=== PATIENT | male | born 1975 | race Caucasian/White ===

== ENCOUNTER 2020-09-17 08:52 | Emergency (ER) | payer BC, SELFPAY ==
[2020-09-17 08:53] VITALS: BP 144/81; PULSE 75; RESP 18; TEMP 36.5; O2SAT 98; BMI 34.4
--- NOTE | 2020-09-17 08:54 | W.ED.ABDPA2 ---
HPI - Abdominal Pain General: Chief Complaint: Abdominal Pain Stated Complaint: ABD Pain Time Seen by Provider: 09/17/20 08:52 Source: patient Mode of arrival: ambulatory Limitations: no limitations History of Present Illness: HPI narrative: Patient is a 45-year-old male who presents to ED today with a complaint of lower abdominal pain. Patient tells me he has a history of diverticulitis and Crohn's disease. Patient has never seen a GI specialist for either of these. Patient tells me his last diverticulitis flare was approximately 2 months ago. He states this episode began about 9 days ago. He was seen in urgent care 2 days ago and recommended to come to the emergency department however patient did not. He states he has never had a flare this severe before. He has having non-bloody diarrhea. No vomiting. He is not sure if he has been running fevers. Denies urinary symptoms. MD elicited complaint: abdominal pain Pertinent past history: diverticulitis Onset (ago): day(s) Pain Consistency: constant Location: Other (throughout lower abdomen) Severity: severe Quality: stabbing Radiation: none Migration to: no migration Relieving factors: nothing Associated Symptoms: Reports diarrhea; Denies chills, coffee ground emesis, dysuria, hematochezia, hematemesis, melena, nausea and vomiting Review of Systems Const: Reports: fever(s) (pt reports he isn't sure if he's been running fevers); Denies: chills, body aches, fatigue or malaise Card: Denies: chest pain Resp: Denies: dyspnea GI: Reports: abdominal pain and diarrhea; Denies: nausea, vomiting, hematemesis, coffee ground emesis, hematochezia or melena : Denies: flank pain, difficulty urinating, dysuria, urinary frequency, urinary urgency or urinary hesitancy Musc: Denies: back pain Skin/Breast: Denies: rash Neuro: Denies: headache(s) PFSH ED PFSH: Social History Smoking and tobacco status: current every day smoker Alcohol intake: never Physical Exam Const: COMMON NORMALS: patient oriented x3, no limitations and alert GENERAL APPEARANCE: cooperative and in distress (appears uncomfortable ) NUTRITIONAL APPEARANCE: obese ORIENTATION/CONSCIOUSNESS: Yes awake, Yes oriented to person, Yes oriented to place and Yes oriented to time HENMT: COMMON NORMALS: normocephalic and atraumatic HEAD & SCALP: normocephalic and atraumatic Resp: COMMON NORMALS: normal respiratory effort and clear to auscultation bilaterally AUSCULTATION: clear to auscultation bilaterally Cardio: COMMON NORMALS: regular rate and regular rhythm RATE: regular rate RHYTHM: regular rhythm GI: COMMON NORMALS: Normal to inspection, nondistended, normoactive bowel sounds present, Soft to palpation, No hepatosplenomegaly present and no masses INSPECTION: Yes normal to inspection AUSCULTATION: Yes normoactive bowel sounds PALPATION: Yes Soft to palpation, Yes Tenderness to palpation present (GI) (throughout lower abdomen), Yes Guarding due to palpation present (GI) and Yes No hepatosplenomegaly present : COMMON NORMALS: Yes no CVA tenderness BLADDER/KIDNEY EXAM: Yes no CVA tenderness Back/Pelvis: COMMON NORMALS: no CVA tenderness Neuro: COMMON NORMALS: patient oriented x3 SENSORIUM/ORIENTATION: Yes alert, Yes oriented to person, Yes oriented to place and Yes oriented to time Skin: COMMON NORMALS: no rashes or lesions noted GENERAL SKIN EXAM: no rashes or lesions noted Course Vital Signs: Vital signs: Vital Signs Temperature 97.7 F 09/17/20 08:53 Pulse Rate 58 L 09/17/20 10:21 Respiratory Rate 16 09/17/20 10:21 Blood Pressure 133/80 09/17/20 10:21 Pulse Oximetry 96 09/17/20 10:21 MDM - Abdominal Pain MDM Narrative: Medical decision making narrative: Patient currently feeling much better. Vital signs of been stable throughout his stay. Labs are non-concerning at this time. He does have an elevated lipase at 148 however patient has no left upper quadrant tenderness. His CT scan shows no pancreatic inflammation. Based on patient's history and worsening pain I will go ahead and place him on Cipro and Flagyl. He is wanting something mainly for the abdominal cramping. He will be placed on Bentyl for this. Recommend follow-up with primary care provider. Return to ED precautions given. Lab Data: Labs: Lab Results 09/17/20 09/17/20 09/17/20 Range/Units 09:03 09:05 09:05 WBC 8.6 (4.0-10.0) 10^3/ uL RBC 6.29 H (4.1-5.3) 10^6/u L Hgb 18.2 H (11.7-16.6) g/dL Hct 53.2 H (42.0-52.0) % MCV 84.6 (80-94) fL MCH 28.9 (28.0-34.0) pg MCHC 34.2 (30.0-36.0) g/dL RDW 12.6 (12.1-15.1) % Plt Count 275 (130-400) 10^3/c mm MPV 10.4 (7.4-10.4) fL Neut % (Auto) 65.0 % Lymph % (Auto) 24.7 % [place] % (Auto) 7.6 % Eos % (Auto) 1.6 % Baso % (Auto) 0.6 % Neut # (Auto) 5.57 (1.8-7.7) 10^3/u L Lymph # (Auto) 2.1 (0.8-4.8) 10^3/u L [place] # (Auto) 0.7 (0.2-0.9) 10^3/u L Eos # (Auto) 0.1 (0.0-0.8) 10^3/u L Baso # (Auto) 0.1 (0.0-0.1) 10^3/u L Nucleated RBC % (a uto) 0 % Nucleated RBCs # 0.0 /100WBC Sodium 135 L (136-145) mmol/L Potassium 4.3 (3.5-5.1) mmol/L Chloride 103 (98-107) mmol/L Carbon Dioxide 22 (22-29) mmol/L Anion Gap 14.3 (5-19) BUN 10 (6-20) mg/dL Creatinine 0.9 (0.7-1.2) mg/dL GFR Calculation 91.7 (90-130) mL/min Glucose 105 (65-115) mg/dL Calculated Osmolal ity 279 L (285-295) mOsm/k g Lactic Acid (0.5-2.2) mmol/L Calcium 9.5 (8.5-10.5) mg/dL Total Bilirubin 0.4 (0.15-1.2) mg/dL AST 11 (0-40) U/L ALT 12 (0-41) U/L Alkaline Phosphata se 96 (40-130) IU/L Total Protein 7.3 (6.6-8.7) g/dL Albumin 4.4 (3.5-5.2) g/dL Globulin 2.9 (1.3-4.6) g/dL Lipase 148 H (13-60) U/L Urine Color Yellow (Yellow) Urine Appearance Clear (CLEAR) Urine pH 5 (5-7) Ur Specific Gravit y 1.025 (1.005-1.030) Urine Protein Neg (Negative) Urine Glucose (UA) Norm (Normal) Urine Ketones Negative (Negative) Urine Blood Neg (Negative) Urine Nitrate Negative (Negative) Urine Bilirubin 1+ H (Negative) Urine Urobilinogen Norm (Negative) mg/dL Ur Leukocyte Debbie ase Negative (Negative) 09/17/20 Range/Units 09:05 WBC (4.0-10.0) 10^3/ uL RBC (4.1-5.3) 10^6/u L Hgb (11.7-16.6) g/dL Hct (42.0-52.0) % MCV (80-94) fL MCH (28.0-34.0) pg MCHC (30.0-36.0) g/dL RDW (12.1-15.1) % Plt Count (130-400) 10^3/c mm MPV (7.4-10.4) fL Neut % (Auto) % Lymph % (Auto) % [place] % (Auto) % Eos % (Auto) % Baso % (Auto) % Neut # (Auto) (1.8-7.7) 10^3/u L Lymph # (Auto) (0.8-4.8) 10^3/u L [place] # (Auto) (0.2-0.9) 10^3/u L Eos # (Auto) (0.0-0.8) 10^3/u L Baso # (Auto) (0.0-0.1) 10^3/u L Nucleated RBC % (a uto) % Nucleated RBCs # /100WBC Sodium (136-145) mmol/L Potassium (3.5-5.1) mmol/L Chloride (98-107) mmol/L Carbon Dioxide (22-29) mmol/L Anion Gap (5-19) BUN (6-20) mg/dL Creatinine (0.7-1.2) mg/dL GFR Calculation (90-130) mL/min Glucose (65-115) mg/dL Calculated Osmolal ity (285-295) mOsm/k g Lactic Acid 1.6 (0.5-2.2) mmol/L Calcium (8.5-10.5) mg/dL Total Bilirubin (0.15-1.2) mg/dL AST (0-40) U/L ALT (0-41) U/L Alkaline Phosphata se (40-130) IU/L Total Protein (6.6-8.7) g/dL Albumin (3.5-5.2) g/dL Globulin (1.3-4.6) g/dL Lipase (13-60) U/L Urine Color (Yellow) Urine Appearance (CLEAR) Urine pH (5-7) Ur Specific Gravit y (1.005-1.030) Urine Protein (Negative) Urine Glucose (UA) (Normal) Urine Ketones (Negative) Urine Blood (Negative) Urine Nitrate (Negative) Urine Bilirubin (Negative) Urine Urobilinogen (Negative) mg/dL Ur Leukocyte Debbie ase (Negative) Imaging Data ^: CT Abd/Pel: Radiologist's impression: [address] [address] [address] Scan Report Signed Patient: Bradley Barroso Unit #: [id number] : 1975 Age/Sex: 45 / M ADM Date: 09/17/20 Loc: ER Room/Bed: Attending Dr: Ordering Provider/Ordering MD: Simi Aguilar Date of Service: 09/17/20 Procedure(s): CT abdomen pelvis w con* [id number] Accession Number(s): [id number] Report Number: [id number] WS: [id number] CT ABDOMEN AND PELVIS WITH CONTRAST HISTORY: lower abdominal pain, diarrhea TECHNIQUE: Imaging performed of the abdomen and pelvis with IV contrast. Single phase imaging of the abdomen. Coronal and sagittal reformats are submitted. All CT scans at [facility] use at least one of these dose optimization techniques: automated exposure control; mA and/or kV adjustment per patient size (includes targeted exams where dose is matched to clinical indication); or iterative reconstruction. IV CONTRAST: Omnipaque 300; 95 mL IV. Oral contrast: No DLP: 2082.74 mGy.cm COMPARISON: 01/14/2011 Lower thorax: Lung bases are clear. Heart is normal size. Small hernia. Liver/biliary system: Normal size with no intrahepatic dilatation. Gallbladder: Very slightly contracted gallbladder. No adjacent inflammation or wall thickening. Pancreas: Normal. Spleen: Normal. Adrenal glands: Normal. Right kidney: Normal. Left kidney: Normal. Aorta: Normal. Lymphadenopathy: None. Free fluid: None. GI tract: The appendix is normal. There is mild fluid distention of the small bowel but no focal transition point. Numerous diverticula in the sigmoid and descending colon. No focal area of acute diverticulitis. Very early changes of mild mucosal edema beginning in the mid transverse colon through the splenic flexure. Abdominal wall: Unremarkable abdominal wall. No hernia. Pelvis: Mild prostate gland hypertrophy with central calcifications. No adenopathy or fluid. Bones: Unremarkable. CT/CT abdomen pelvis w con* [id number] IMPRESSION: 1. Normal appendix. 2. Very mild mucosal edema beginning in the mid transverse colon to the splenic flexure secondary to colitis. 3. Numerous descending and sigmoid diverticula. No evidence for acute diverticulitis. 4. No abscess or free fluid. Dictated By: Lynette Gomes DO Signed By: Lynette Gomes DO Signed Date/Time: 09/17/20945 DD/ 9 Discharge Plan Discharge Patient Disposition: Home Clinical Impression: Colitis Condition: Stable Prescriptions: New hydrocodone-acetaminophen 5-325 mg tablet 1 tab PO Q6H PRN (Reason: pain) Qty: 14 RF: 0 Flagyl 500 mg tablet 500 mg PO BID 7 Days Qty: 14 RF: 0 Cipro 500 mg tablet 500 mg PO Q12H Qty: 14 RF: 0 dicyclomine 10 mg capsule 10 mg PO TID Qty: 14 RF: 0 No Action ondansetron 8 mg tablet,disintegrating 8 mg PO Q12H PRN (Reason: nausea and vomiting) 7 Days Qty: 14 RF: 0 Discharge Orders: Discharge ED (Routine); Ordered 09/17/20 Ordered By: Simi Aguilar Patient Instructions: Diverticulitis (ED), Ulcerative Colitis (ED), Opioid Safety Activity Restrictions/Additional Instructions: [facility] is committed to fighting the nationwide opiate epidemic. We are providing ALL patients with information regarding opiate safety. If you received opiate pain medication during your stay or if you received a prescription for opiate pain medication-please review this handout. If not, you may disregard. Thank you. Please return to the emergency department for worsening or nonimproving abdominal pain, repetitive episodes of vomiting or diarrhea, blood in your vomit or diarrhea, fevers, inability to keep down your medication, or any other concerns you may have. Coding Level of Care Code ED Flame Annealing Machine Operator for Chg Fwd Exam Detailed
--- NOTE | 2020-09-17 09:03 | CT_ITS ---
WS: [id number] CT ABDOMEN AND PELVIS WITH CONTRAST HISTORY: lower abdominal pain, diarrhea TECHNIQUE: Imaging performed of the abdomen and pelvis with IV contrast. Single phase imaging of the abdomen. Coronal and sagittal reformats are submitted. All CT scans at [facility] use at least one of these dose optimization techniques: automated exposure control; mA and/or kV adjustment per patient size (includes targeted exams where dose is matched to clinical indication); or iterativ e reconstruction. IV CONTRAST: Omnipaque 300; 95 mL IV. Oral contrast: No DLP: 2082.74 mGy.cm COMPARISON: 01/14/2011 Lower thorax: Lung bases are clear. Heart is normal size. Small hernia. Liver/biliary system: Normal size with no intrahepatic dilatation. Gallbladder: Very slightly contracted gallbladder. No adjacent inflammation or wall thickening. Pancreas: Normal. Spleen: Normal. Adrenal glands: Normal. Right kidney: Normal. Left kidney: Normal. Aorta: Normal. Lymphadenopathy: None. Free fluid: None. GI tract: The appendix is normal. There is mild fluid distention of the small bowel but no focal talley sition point. Numerous diverticula in the sigmoid and descending colon. No focal area of acute divert iculitis. Very early changes of mild mucosal edema beginning in the mid transverse colon through the splenic flexure. Abdominal wall: Unremarkable abdominal wall. No hernia. Pelvis: Mild prostate gland hypertrophy with central calcifications. No adenopathy or fluid. Bones: Unremarkable. CT/CT abdomen pelvis w con* [id number] IMPRESSION: 1. Normal appendix. 2. Very mild mucosal edema beginning in the mid transverse colon to the spleni c flexure secondary to colitis. 3. Numerous descending and sigmoid diverticula. No evidence for acute divertic ulitis. 4. No abscess or free fluid.
[2020-09-17 09:04] VITALS: BP 137/79; PULSE 80; RESP 19; O2SAT 98
[2020-09-17] MEDS: sodium chloride 0.9% 1,000 ML 999 ML IV (09:10)
[2020-09-17 09:11] LABS: Add Urine Microscopic? NO
[2020-09-17] MEDS: ondansetron 2 mg/ML SDV 2 mL 4 MG IVP (09:11)
[2020-09-17 09:12] VITALS: RESP 18; O2SAT 99
[2020-09-17 09:12] LABS: Basophils # 0.1 10^3/uL (0.0-0.1); Basophils % 0.6 %; Eosinophils # 0.1 10^3/uL (0.0-0.8); Eosinophils % 1.6 %; Hematocrit 53.2 % (42.0-52.0); Hemoglobin 18.2 g/dL (11.7-16.6); Lymphocytes # 2.1 10^3/uL (0.8-4.8); Lymphocytes % 24.7 %; Mean Corpuscular HGB Conc 34.2 g/dL (30.0-36.0); Mean Corpuscular Hemoglobin 28.9 pg (28.0-34.0); Mean Corpuscular Volume 84.6 fL (80-94); Mean Platelet Volume 10.4 fL (7.4-10.4); Monocytes # 0.7 10^3/uL (0.2-0.9); Monocytes % 7.6 %; Neutrophils # 5.57 10^3/uL (1.8-7.7); Nucleated Red Blood Cells % 0 %; Platelet Count 275 10^3/cmm (130-400); Red Blood Count 6.29 10^6/uL (4.1-5.3); Red Cell Distribution Width 12.6 % (12.1-15.1); White Blood Count 8.6 10^3/uL (4.0-10.0)
[2020-09-17] MEDS: morphine 4 mg/mL SDV 1 mL IVP (09:12)
[2020-09-17 09:19] LABS: Urine Appearance Clear (CLEAR); Urine Color Yellow (Yellow); pH Urine 5 (5-7)
[2020-09-17 09:20] LABS: Bilirubin Urine 1+ (Negative); Blood Urine Neg (Negative); Glucose Urine UA Norm (Normal); Ketones Urine Negative (Negative); Leukocyte Esterase Urine Negative (Negative); Nitrate Urine Negative (Negative); Protein Urine Neg (Negative); Specific Gravity, Urine 1.025 (1.005-1.030); Urobilinogen Urine Norm (Negative)
[2020-09-17] MEDS: iohexol 300 mg/mL 100 mL Btl IV (09:24)
[2020-09-17 09:28] LABS: Lactic Sepsis W/Reflex 1.6 mmol/L (0.5-2.2)
[2020-09-17 09:29] LABS: Alanine Aminotransferase 12 U/L (0-41); Albumin Level 4.4 g/dL (3.5-5.2); Alkaline Phosphatase 96 IU/L (40-130); Anion Gap 14.3 (5-19); Aspartate Amino Transferase 11 U/L (0-40); Blood Urea Nitrogen 10 mg/dL (6-20); Calcium 9.5 mg/dL (8.5-10.5); Carbon Dioxide 22 mmol/L (22-29); Chloride 103 mmol/L (98-107); Globulin 2.9 g/dL (1.3-4.6); Glomerular Filtration Rate 91.7 mL/min (90-130); Glucose 105 mg/dL (65-115); Lipase 148 U/L (13-60); Osmolality Calculated 279 mOsm/kg (285-295); Potassium 4.3 mmol/L (3.5-5.1); Sodium 135 mmol/L (136-145); Total Bilirubin 0.4 mg/dL (0.15-1.2); Total Protein 7.3 g/dL (6.6-8.7)
[2020-09-17 09:45] VITALS: BP 137/79; PULSE 63; RESP 17; O2SAT 96
[2020-09-17 10:21] VITALS: BP 133/80; PULSE 58; RESP 16; O2SAT 96
== END 2020-09-17 10:21 | disposition home or self-care (01) ==
PROVIDERS: Emergency Provider Physician Assistant
DX: K52.9 Noninfective gastroenteritis and colitis, unspecified (principal); F17.210 Nicotine dependence, cigarettes, uncomplicated
CPT/HCPCS: 74177; 80053; 81003; 83605; 83690; 85025; 96374; 96375; 99284; J2270; J2405; J7030; Q9967

== ENCOUNTER 2020-11-25 12:19 | Inpatient (IN) | payer BC, SELFPAY ==
[2020-11-25] VITALS (7 sets, daily range): BP systolic 113–149; BP diastolic 78–95; PULSE 78–92; RESP 16–18; TEMP 35.9–36.4; O2SAT 95–98
--- NOTE | 2020-11-25 12:47 | W.ED.PSYCH ---
HPI - Psych General: Chief Complaint: Psychiatric Symptoms Stated Complaint: FABIO CRAFT Time Seen by Provider: 11/25/20 12:26 History of Present Illness: HPI Narrative: 45-year-old male who was sent here by both cars worker due to depression. Patient said he is impressed for 5 years never has sought help for it and actually sought help today. States that it is been ongoing mccle[place]and. It worsened recently by his mothers this past year. He also is and having a raised 2 boys. He says the stress tablet is just got too much for him. Said he thinks every day about suicide when he closes eyes he thinks about suicide and taking his life he does not have a plan developed. Patient also states that he does smoke marijuana on regular basis and does do meth. MD complaint: suicidal ideation and feels depressed Onset (ago): year(s) Duration: constant and getting worse History of same: No Relieving factors: none Exacerbating factors: drug use Context: recent drug abuse Associated psychiatric symptoms: depression and suicidal ideation Associated symptoms: Reports no associated symptoms, depression and suicidal ideation Treatments prior to arrival: none If self harm: admits thoughts of self harm Review of Systems Const: Denies: fever(s), chills or body aches Eyes: Denies: change in vision or blurry vision ENMT: Denies: throat pain or nasal congestion Card: Denies: chest pain or dyspnea on exertion Resp: Denies: dyspnea, productive cough or non-productive cough GI: Denies: abdominal pain, nausea or vomiting : Denies: difficulty urinating Musc: Denies: extremity pain Skin/Breast: Denies: rash Neuro: Denies: headache(s) Psych: Reports: depression and suicidal ideation; Denies: anxiety Richie/Lymph: Denies: easy bruising PFS ED PFSH: Social History Smoking and tobacco status: current every day smoker Alcohol intake: never Physical Exam Const: COMMON NORMALS: no acute distress, average body habitus and patient oriented x3 HENMT: COMMON NORMALS: normocephalic HEAD & SCALP: normal to inspection and normocephalic FACE & SINUS: normal facial exam Eye: COMMON NORMALS: conjunctivae normal GENERAL EYE: appearance normal, both eyes and all related structures CONJUNCTIVA: Yes conjunctivae normal Neck/C-Spine: COMMON NORMALS: no JVD Chest: COMMONS NORMALS: normal inspection of the chest Resp: COMMON NORMALS: normal respiratory effort and clear to auscultation bilaterally AUSCULTATION: clear to auscultation bilaterally Cardio: COMMON NORMALS: no JVD, regular rate and regular rhythm RATE: regular rate RHYTHM: regular rhythm GI: COMMON NORMALS: Normal to inspection, nondistended, normoactive bowel sounds present Extremity: COMMON NORMALS: normal to inspection and full ROM Neuro: COMMON NORMALS: patient oriented x3 Psych: COMMON NORMALS: Normal thought process present, cooperative and speech normal APPEARANCE: Yes grossly normal ATTITUDE: Yes agitated ACTIVITY/MOTOR BEHAVIOR: Yes appropriate eye contact SPEECH: Yes normal speech MOOD & AFFECT: Yes depressed mood THOUGHT PROCESS: Normal thought process present Course Vital Signs: Vital signs: Vital Signs Temperature 97.6 F 11/25/20 12:39 Pulse Rate 86 11/25/20 12:39 Respiratory Rate 16 11/25/20 12:39 Pulse Oximetry 97 11/25/20 12:39 MDM - Psych MDM Narrative: Medical decision making narrative: I spoke with Dr. Jean he agrees accept the patient for admission Lab Data: Labs: Lab Results 11/25/20 11/25/20 11/25/20 Range/Units 13:28 13:28 13:51 WBC 11.0 H (4.0-10.0) 10^3/ uL RBC 6.49 H (4.1-5.3) 10^6/u L Hgb 18.8 H (11.7-16.6) g/dL Hct 54.5 H (42.0-52.0) % MCV 84.0 (80-94) fL MCH 29.0 (28.0-34.0) pg MCHC 34.5 (30.0-36.0) g/dL RDW 12.5 (12.1-15.1) % Plt Count 282 (130-400) 10^3/c mm MPV 10.3 (7.4-10.4) fL Neut % (Auto) 70.2 % Lymph % (Auto) 20.9 % [place] % (Auto) 7.1 % Eos % (Auto) 0.8 % Baso % (Auto) 0.6 % Neut # (Auto) 7.70 (1.8-7.7) 10^3/u L Lymph # (Auto) 2.3 (0.8-4.8) 10^3/u L [place] # (Auto) 0.8 (0.2-0.9) 10^3/u L Eos # (Auto) 0.1 (0.0-0.8) 10^3/u L Baso # (Auto) 0.1 (0.0-0.1) 10^3/u L Nucleated RBC % (a uto) 0 % Nucleated RBCs # 0.0 /100WBC Sodium 137 (136-145) mmol/L Potassium 3.8 (3.5-5.1) mmol/L Chloride 101 (98-107) mmol/L Carbon Dioxide 24 (22-29) mmol/L Anion Gap 15.8 (5-19) BUN 11 (6-20) mg/dL Creatinine 0.8 (0.7-1.2) mg/dL GFR Calculation 105.0 (90-130) mL/min Glucose 111 (65-115) mg/dL Calculated Osmolal ity 284 L (285-295) mOsm/k g Calcium 9.4 (8.5-10.5) mg/dL Total Bilirubin 0.6 (0.15-1.2) mg/dL AST 12 (0-40) U/L ALT 8 (0-41) U/L Alkaline Phosphata se 108 (40-130) IU/L Total Protein 7.4 (6.6-8.7) g/dL Albumin 4.4 (3.5-5.2) g/dL Globulin 3.0 (1.3-4.6) g/dL Urine Color (Yellow) Urine Appearance (CLEAR) Urine pH (5-7) Ur Specific Gravit y (1.005-1.030) Urine Protein (Negative) Urine Glucose (UA) (Normal) Urine Ketones (Negative) Urine Blood (Negative) Urine Nitrate (Negative) Urine Bilirubin (Negative) Urine Urobilinogen (Negative) mg/dL Ur Leukocyte Debbie ase (Negative) Urine RBC (0-2) /hpf Urine WBC (0-5) /hpf Ur Squamous Epith Cells (0-5) /hpf Amorphous Sediment Urine Bacteria (NONE) /hpf Urine Mucus /hpf Salicylates 2.2 L (3-10) mg/dL Urine Opiates Scre en Negative (Negative) ng/mL Acetaminophen < 5.0 L (10-30) ug/mL Ur Barbiturates Sc reen Negative (Negative) ng/mL Ur Phencyclidine S crn Negative (Negative) ng/mL Ur Amphetamines Sc reen Positive H (Negative) ng/mL U Benzodiazepines Scrn Negative (Negative) ng/mL Urine Cocaine Scre en Negative (Negative) ng/mL U Marijuana (THC) Screen Positive H (Negative) ng/mL 11/25/20 Range/Units 13:51 WBC (4.0-10.0) 10^3/ uL RBC (4.1-5.3) 10^6/u L Hgb (11.7-16.6) g/dL Hct (42.0-52.0) % MCV (80-94) fL MCH (28.0-34.0) pg MCHC (30.0-36.0) g/dL RDW (12.1-15.1) % Plt Count (130-400) 10^3/c mm MPV (7.4-10.4) fL Neut % (Auto) % Lymph % (Auto) % [place] % (Auto) % Eos % (Auto) % Baso % (Auto) % Neut # (Auto) (1.8-7.7) 10^3/u L Lymph # (Auto) (0.8-4.8) 10^3/u L [place] # (Auto) (0.2-0.9) 10^3/u L Eos # (Auto) (0.0-0.8) 10^3/u L Baso # (Auto) (0.0-0.1) 10^3/u L Nucleated RBC % (a uto) % Nucleated RBCs # /100WBC Sodium (136-145) mmol/L Potassium (3.5-5.1) mmol/L Chloride (98-107) mmol/L Carbon Dioxide (22-29) mmol/L Anion Gap (5-19) BUN (6-20) mg/dL Creatinine (0.7-1.2) mg/dL GFR Calculation (90-130) mL/min Glucose (65-115) mg/dL Calculated Osmolal ity (285-295) mOsm/k g Calcium (8.5-10.5) mg/dL Total Bilirubin (0.15-1.2) mg/dL AST (0-40) U/L ALT (0-41) U/L Alkaline Phosphata se (40-130) IU/L Total Protein (6.6-8.7) g/dL Albumin (3.5-5.2) g/dL Globulin (1.3-4.6) g/dL Urine Color Dark yellow (Yellow) Urine Appearance Clear (CLEAR) Urine pH 5 (5-7) Ur Specific Gravit y 1.020 (1.005-1.030) Urine Protein Trace (Negative) Urine Glucose (UA) Norm (Normal) Urine Ketones 1+ H (Negative) Urine Blood 2+ H (Negative) Urine Nitrate Negative (Negative) Urine Bilirubin 1+ H (Negative) Urine Urobilinogen 1 H (Negative) mg/dL Ur Leukocyte Debbie ase Trace H (Negative) Urine RBC 0-4 H (0-2) /hpf Urine WBC 0-4 H (0-5) /hpf Ur Squamous Epith Cells 0-4 H (0-5) /hpf Amorphous Sediment Not Reportable Urine Bacteria 1+ H (NONE) /hpf Urine Mucus 3+ /hpf Salicylates (3-10) mg/dL Urine Opiates Scre en (Negative) ng/mL Acetaminophen (10-30) ug/mL Ur Barbiturates Sc reen (Negative) ng/mL Ur Phencyclidine S crn (Negative) ng/mL Ur Amphetamines Sc reen (Negative) ng/mL U Benzodiazepines Scrn (Negative) ng/mL Urine Cocaine Scre en (Negative) ng/mL U Marijuana (THC) Screen (Negative) ng/mL Discharge Plan Discharge Prescriptions: No Action aspirin 325 mg Tablet 650 mg PO Q6H PRN (Reason: Pain) RF: 0 Coding Level of Care Code ED Rivet Heater Gas for Chg Fwd Exam Comprehensive
[2020-11-25 13:39] LABS: Basophils # 0.1 10^3/uL (0.0-0.1); Basophils % 0.6 %; Eosinophils # 0.1 10^3/uL (0.0-0.8); Eosinophils % 0.8 %; Hematocrit 54.5 % (42.0-52.0); Hemoglobin 18.8 g/dL (11.7-16.6); Lymphocytes # 2.3 10^3/uL (0.8-4.8); Lymphocytes % 20.9 %; Mean Corpuscular HGB Conc 34.5 g/dL (30.0-36.0); Mean Platelet Volume 10.3 fL (7.4-10.4); Monocytes # 0.8 10^3/uL (0.2-0.9); Monocytes % 7.1 %; Neutrophils % 70.2 %; Nucleated Red Blood Cells % 0 %; Platelet Count 282 10^3/cmm (130-400); Red Blood Count 6.49 10^6/uL (4.1-5.3); Red Cell Distribution Width 12.5 % (12.1-15.1)
[2020-11-25] MEDS: LORazepam 2 mg Tablet PO (13:45)
[2020-11-25 14:01] LABS: Add Urine Microscopic? YES; Bilirubin Urine 1+ (Negative); Blood Urine 2+ (Negative); Glucose Urine UA Norm (Normal); Ketones Urine 1+ (Negative); Leukocyte Esterase Urine Trace (Negative); Nitrate Urine Negative (Negative); Protein Urine Trace (Negative); Urine Appearance Clear (CLEAR); Urine Color Dark Yellow (Yellow); Urobilinogen Urine 1 mg/dL (Negative); pH Urine 5 (5-7)
[2020-11-25 14:04] LABS: Alanine Aminotransferase 8 U/L (0-41); Albumin Level 4.4 g/dL (3.5-5.2); Alkaline Phosphatase 108 IU/L (40-130); Anion Gap 15.8 (5-19); Aspartate Amino Transferase 12 U/L (0-40); Blood Urea Nitrogen 11 mg/dL (6-20); Calcium 9.4 mg/dL (8.5-10.5); Carbon Dioxide 24 mmol/L (22-29); Chloride 101 mmol/L (98-107); Glucose 111 mg/dL (65-115); Osmolality Calculated 284 mOsm/kg (285-295); Potassium 3.8 mmol/L (3.5-5.1); Salicylate 2.2 mg/dL (3-10); Sodium 137 mmol/L (136-145); Total Bilirubin 0.6 mg/dL (0.15-1.2); Total Protein 7.4 g/dL (6.6-8.7)
[2020-11-25 14:05] LABS: Acetaminophen < 5.0 ug/mL (10-30)
[2020-11-25 14:07] LABS: Bacteria Urine 1+ /hpf; Mucus Urine 3+ /hpf; Squamous Epithelial Cell Urine 0-4 /hpf (0-5)
[2020-11-25 14:08] LABS: Add Urine Culture? No; RBC Urine 0-4 /hpf (0-2); WBC Urine 0-4 /hpf (0-5)
[2020-11-25 14:09] LABS: Amphetamines Screen Urine Positive (Negative); Barbiturates Screen Urine Negative (Negative); Benzodiazepines Screen Urine Negative (Negative); Cocaine Screen Urine Negative (Negative); Opiate Screen Urine Negative (Negative); PCP Screen Urine Negative (Negative); THC Screen Urine Positive (Negative)
[2020-11-25] MEDS: hyDROXYzine 25 mg Capsule 50 MG PO ×2 (16:02→21:12)
--- NOTE | 2020-11-25 16:02 | PC.NURSE ---
PRN VISTARIL 50 MG GIVEN PO PER PT C/O STATED ANXIETY, NEW ADMIT TO UNIT, WITHDRAWN. WILL CONT TO MONITOR
[2020-11-25] MEDS: nicotine 2 mg Gum BUCCAL (19:31)
[2020-11-25] MEDS: fluticasone nasal spray 16gm Btl 2 SPRAY INTRANASAL (21:13)
[2020-11-25] MEDS: trazodone 50 mg Tablet PO (21:14)
[2020-11-25] MEDS: albuterol 8 gm MDI 2 PUFF INHALATION (21:41)
--- NOTE | 2020-11-26 04:38 | PC.NURSE ---
Around 2119 the patient was given Trazodone 50 mg and Vistaril 50 mg per his request to aid with sleep. He appears to have been sleeping through the night.
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
[2020-11-26 06:00] VITALS: BP 117/73; PULSE 63; RESP 18; TEMP 36.9; O2SAT 95
--- NOTE | 2020-11-26 10:26 | PM.NHP ---
Providers/Chief Complaint Admitting Physician: John Jean MD Chief Complaint: mo carlene sent HPI NPU History of Present Illness Bradley Barroso is a 45 year old male with no reported past psychiatric history although reports lifelong depressive symptoms as well as ongoing, longstanding somatic complaints to include problems with his stomach presented to the emergency department with worsening depressive symptoms and suicidal ideation. He denies any current suicidal ideation and denies any history of suicide attempts or self-harm behavior but states that he has been having worsening passive suicidal thoughts over the past month. Patient has recent stressors of loss of his mother in the past year as well as divorce a couple years ago and is currently raising his 2 teenage sons without assistance from his ex- which he reports exacerbates his symptoms. 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 He continues to report low mood states decreased energy and interest in his usual activities as well as some difficulty with sleep and appetite related to depressive symptoms. Of note he reports using trazodone to assist with sleep last night and reports that it makes him feel extremely groggy in the morning. Patient also reports mood congruent auditory hallucinations and states that in the past he is also had visual hallucinations of seeing shadows or figures. Patient states that auditory hallucinations tell him that he is a bad person and that he should hurt himself but states that he has never acted on these perceptual disturbances. He currently denies any suicidal ideation or thoughts about self-harm Patient does report recent methamphetamine use and ongoing cannabis use but does not provide any details about duration, frequency, amounts. Per above, patient denies any past treatment to include medication management, counseling or therapy. He denies any past or recent episodes of ronnie or hypomania. Patient states he does not recall any family history of depression or anxiety or any family history of suicide attempts or completions. Patient reports being agreeable to starting a low-dose antidepressant as well as coordination for post discharge counseling/therapy. Review of Systems General: Reports: 10 or more systems reviewed and unremarkable except in HPI and below Meds NPU Home Medications Medication Instructions Recorded Confirmed Last Taken Type albuterol sulfate 2 puff INHALATION BEDTIME 11/25/20 11/25/20 11/24/20 History aspirin 650 mg PO Q6H PRN 11/25/20 11/25/20 11/24/20 History fluticasone propionate [Flonase] 2 spray INTRANASAL BEDTIME 11/25/20 11/25/20 11/24/20 History Allergies Allergy/AdvReac Type Severity Reaction Status Date / Time Penicillins Allergy ALGY-Anaphy Verified 10/23/20 10:44 laxis PFSH NPU PFSH: Social History Smoking and tobacco status: current every day smoker Alcohol intake: never Other Psychiatric History: Other Psychiatric History: Per above, patient denies any past psychiatric treatment Patient denies any history of psychiatric hospitalizations Patient denies any history of suicide attempts or self-harm behavior Mental Status Exam MSE Comments: Appears older than stated age, unshaven, unkempt, tired appearing, wearing hospital scrubs, fair eye contact, somewhat evasive Psychomotor activity is somewhat decreased, no agitation Speech with frequent pauses, normal volume, spontaneous, not pressured I feel horrible, congruent affect, not labile Alert and oriented to person, place, time, situation Memory and concentration appear to be intact per interview Intellectual functioning appears to be average based on vocabulary, interview Thought process, delayed on occasion, linear, no flight of ideas, no looseness of associations Thought content, no delusions, no hallucinations, no suicidal or homicidal ideation Insight and judgment appear to be intact Vitals/I&O/Wt Last Vital Signs Temp 98.4 F 11/26/20 06:00 Pulse 63 11/26/20 06:00 Resp 18 11/26/20 06:00 BP 117/73 11/26/20 06:00 Pulse Ox 95 11/26/20 06:00 Weight last 48 hrs Weight 104.326 kg Data NPU : 11/25/20 13:28 11/25/20 13:28 A&P Assessment and plan (1) Depression: Status: Acute Qualifiers: Depression Type: reactive depression Qualified Code(s): F32.9 - Major depressive disorder, single episode, unspecified (2) Drug abuse: Status: Acute Additional A&P Information 45-year-old male with no reported past psychiatric history reports lifelong depressive symptoms as well as occasional perceptual disturbances in the context of worsening depressive symptoms although positive urine drug screen for methamphetamine and cannabis with unclear timeline in relationship to his mood symptoms. Patient would likely benefit from abstaining from substances as well as starting low-dose antidepressant while being monitored and coordinating for post discharge mental health care to include counseling/therapy VOLUNTARY ADMIT to inpatient psychiatry START citalopram 10 mg daily with plan to titrate up targeting depressive and anxiety symptoms Discussed need to abstain from the use of substances and alcohol which likely exacerbate patient's psychiatric symptoms Encouraged patient to participate in unit activities to include group sessions, unit milieu Coordinate with social services designee for post discharge mental health care to include substance counseling, treatment Involuntary Hold Information 96 Hour Hold: 96 Hour Involuntary Admission: No Attestations NPU Medical Necessity Statement*: Psychiatric hospitalization indicated for medication stabilization, coordination for safe discharge Anticipate hospital stay to exceed 2 midnights Time Spent in Patient Care: Greater than 35 minutes (>than 50% of time spent in counselling and/or direct pt care on unit). Coding Level of Care Code Acute Director Financial Planning for Makenna Hidalog Diagnoses Depression F32.9 Depression Type: reactive depression Drug abuse F19.10
[2020-11-26] MEDS: citalopram 20 mg Tablet 10 MG PO (11:28)
[2020-11-26 14:00] VITALS: BP 131/73; PULSE 67; RESP 17; TEMP 37.1; O2SAT 94
[2020-11-26 19:38] VITALS: BP 115/68; PULSE 73; RESP 17; TEMP 36.7; O2SAT 97
[2020-11-26 20:05] VITALS: PULSE 68; RESP 16; O2SAT 97
[2020-11-26] MEDS: albuterol 8 gm MDI 2 PUFF INHALATION (20:05)
[2020-11-26 20:08] VITALS: PULSE 66
[2020-11-26] MEDS: fluticasone nasal spray 16gm Btl 2 SPRAY INTRANASAL (20:35)
[2020-11-27 06:00] VITALS: BP 123/75; PULSE 55; RESP 16; TEMP 36.8; O2SAT 96
[2020-11-27] MEDS: citalopram 20 mg Tablet 10 MG PO (08:45)
--- NOTE | 2020-11-27 10:43 | PM.NDC ---
Diagnoses at Discharge Discharge Diagnosis (1) Depression: Status: Acute Qualifiers: Depression Type: reactive depression Qualified Code(s): F32.9 - Major depressive disorder, single episode, unspecified (2) Drug abuse: Status: Acute Reason for Visit Reason for Visit: shira concepcion sent Hospital Course Hospital Course 45 year old male with no reported past psychiatric history although reports lifelong depressive symptoms as well as ongoing, longstanding somatic complaints to include problems with his stomach presented to the emergency department with worsening depressive symptoms and suicidal ideation. He denies any current suicidal ideation and denies any history of suicide attempts or self-harm behavior but states that he has been having worsening passive suicidal thoughts over the past month. Patient reports that he smokes cannabis but does not typically use methamphetamine but states that he was feeling especially depressed and had decided to use methamphetamine. He denied any psychotic symptoms at the time of initial evaluation. Patient denied any suicidal ideation throughout his hospital stay and reported some improvement of his depressive symptoms after sobering and starting citalopram which was titrated up to citalopram 20 mg daily with no reports of any medication side effects. Patient participate in unit milieu with no reports of any behavioral disturbances. He was not suicidal at the time of discharge and did not report any active psychiatric symptoms and did not appear to pose an imminent threat of harm to self or others. Low to moderate risk given no current suicidal ideation and no history of suicide attempts or self-harm behavior although patient's risk will continue be elevated if he is noncompliant with follow-up treatment recommendations and/or continues to abuse substances or drink alcohol which would lower disinhibition. Risk mitigation included psychiatric hospitalization, medication stabilization, observation for any persisting suicidal ideation or behaviors, recommendation to abstain from the use of substances and alcohol as well as the need for compliance with his medication, medication management and substance counseling follow-up. Patient was daily communicate his understanding of the need to abstain from the use of substances and alcohol as well as the need for compliance with his medication, medication management and substance counseling follow-up in order to further mitigate his risk of harm to self and others. Involuntary Hold Information 96 Hour Hold: 96 Hour Involuntary Admission: No Mental Status Exam MSE Comments: Sitting up on his bed, appropriately groomed and dressed, calm, cooperative, interactive, good eye contact Psychomotor activity is neither increased nor decreased, no agitation Speech, normal rate, normal volume, spontaneous, not pressured I feel better, full range of affect, not labile Alert and oriented to person, place, time, situation Memory and concentration appear to be intact per interview Thought process, linear, no flight of ideas, no looseness of associations Thought content, no delusions, no hallucinations, no suicidal or homicidal ideation Insight and judgment appear to be intact Discharge Data Vitals: Last Vital Signs Temp 98.2 F 11/27/20 06:00 Pulse 55 L 11/27/20 06:00 Resp 16 11/27/20 06:00 BP 123/75 11/27/20 06:00 Pulse Ox 96 11/27/20 06:00 Discharge Plan Discharge Patient Disposition: Home Condition: Stable Prescriptions: New citalopram 20 mg Tablet 20 mg PO DAILY Qty: 30 RF: 0 Continued aspirin 325 mg Tablet 650 mg PO Q6H PRN (Reason: Pain) RF: 0 Flonase 50 mcg/actuation [place],Suspension 2 spray INTRANASAL BEDTIME RF: 0 albuterol sulfate 90 mcg/actuation Hfa Aerosol Inhaler 2 puff INHALATION BEDTIME RF: 0 Discharge Orders: Discharge Order (Routine); Ordered 11/27/20 Ordered By: Adelina Limon Referrals: [facility] [Other] ([facility] has inpatient and outpatient services. ) [facility] [Outside] (Walkin in Monday-Monday from 7:30am to 3pm. Tell admissions you are there for an initial assessment and was recently discharged from the hospital.) Discharge Diet: Regular Discharge Activity: Resume usual activity Patient Instructions: Opioid Safety Discharge Attestations NPU Time Spent in Discharge Care*: greater than 30 min Status at Discharge: Cognitive status at discharge: cognitively intact, Behavioral status at discharge: cooperative, Functional status at discharge: independent ambulation Overall status at discharge: patient is back to baseline Coding Level of Care Code Acute Chg FW DC note Diagnoses Depression F32.9 Depression Type: reactive depression Drug abuse F19.10
[2020-11-27 11:36] VITALS: BP 123/75; PULSE 55; RESP 16; TEMP 36.8; O2SAT 96
--- NOTE | 2020-11-27 15:19 | PC.RESP ---
Smoking Cessation information sent to patient.
== END 2020-11-27 12:20 | disposition home or self-care (01) | DRG 881 ==
LOC: ER 14:40 → NP 14:51
PROVIDERS: Admitting Provider Psychiatry & Neurology Psychiatry; Emergency Provider Nurse Practitioner Family; Visit Provider Psychiatry & Neurology Psychiatry
DX: F32.9 Major depressive disorder, single episode, unspecified (principal); R45.851 Suicidal ideations; F15.10 Other stimulant abuse, uncomplicated; F12.10 Cannabis abuse, uncomplicated
CPT/HCPCS: 80053; 80306; 80307; 81001; 85025; 94640; 94664; 99285; J3535

== ENCOUNTER → 2021-07-27 15:36 | Outpatient (BNVA) | payer OTHER, SELFPAY | PROVIDERS: Visit Provider Nurse Practitioner | DX: Z20.822 Contact with and (suspected) exposure to COVID-19 (principal) | CPT/HCPCS: 87635 ==

== ENCOUNTER 2021-10-20 15:15 | Emergency (ER) | payer SELFPAY ==
[2021-10-20 15:25] VITALS: BP 123/85; PULSE 72; RESP 16; TEMP 36.3; O2SAT 97
--- NOTE | 2021-10-20 16:09 | CTR_ITS ---
PROCEDURE INFORMATION: Exam: CT Abdomen And Pelvis With Contrast Exam date and time: 10/20/2021 5:15 PM Age: 46 years old Clinical indication: Abdominal pain; Flank; Right lower quadrant (rlq); Prior surgery; Surgery date: 6+ months; Surgery type: Vasectomy; Additional info: Rlq pain with low grade fever, HX of ulcerative colitis TECHNIQUE: Imaging protocol: Computed tomography of the abdomen and pelvis with contrast. Radiation optimization: All CT scans at this facility use at least one of these dose optimization techniques: automated exposure control; mA and/or kV adjustment per patient size (includes targeted exams where dose is matched to clinical indication); or iterative reconstruction. Contrast material: OMNIPAQUE 350; Contrast volume: 95 ml; Contrast route: INTRAVENOUS (IV); COMPARISON: CT abdomen pelvis w con* [id number] 09/17/2020 9:35 AM RADIATION DOSE METRICS: Total DLP (mGy-cm): 1745.32 FINDINGS: Liver: Normal. No mass. Gallbladder and bile ducts: Normal. No calcified stones. No ductal dilation. Pancreas: Normal. No ductal dilation. Spleen: Spleen enlarged at 13.9 cm. Adrenal glands: Normal. No mass. Kidneys and ureters: Normal. No hydronephrosis. Stomach and bowel: Mildly prominent fluid in the small bowel without dilation suggestive of an enteritis. Diverticulosis without diverticulitis. Appendix: No evidence of appendicitis. Intraperitoneal space: Unremarkable. No free air. No significant fluid collection. Arteries: Unremarkable. No abdominal aortic aneurysm. Lymph nodes: Unremarkable. No enlarged lymph nodes. Urinary bladder: Unremarkable as visualized. Reproductive: Unremarkable as visualized. Bones/joints: Unremarkable. No acute fracture. Soft tissues: Unremarkable. CT/CT abdomen pelvis w con* [id number] IMPRESSION: 1. Mildly prominent fluid in the small bowel without dilation suggestive of an enteritis. 2. Spleen enlarged at 13.9 cm. 3. Diverticulosis without diverticulitis.
--- NOTE | 2021-10-20 16:26 | ECG_ITS ---
[facility] Test Date: 2021-10-20 Pat Name: Bradley Barroso Department: Room: Gender: Male Parts Facilitator: : 1975 Requested By: Yeison Gregg Order Number: [id number] Jaycee MD: Ventura Rosenberg M.D. Measurements Intervals [place] Rate: 60 P: 75 MS: 167 QRS: 86 QRSD: 102 T: 72 QT: 371 QTc: 371 Interpretive Statements SINUS RHYTHM WITH SINUS ARRHYTHMIA EARLY REPOLARIZATION [ST ELEVATION WITH NORMALLY INFLECTED T-WAVE] No previous ECG available for comparison Electronically Signed On 10-20-2021 16:57:37 CDT by Ventura Rosenberg M.D. [id number]
[2021-10-20 16:27] VITALS: BP 140/79; PULSE 77; RESP 14; O2SAT 97
--- NOTE | 2021-10-20 16:27 | ED_ITS ---
HPI - General Adult General: Chief complaint: Abdominal Pain Stated complaint: Severe ABD Pain Time Seen by Provider: 10/20/21 15:51 History of Present Illness: Patient is a 46-year-old male w/ hx of ulcerative colitis presenting to the emergency room with complaints of 3 days of worsening migratory abdominal pain to the right lower quadrant. Patient tells me that 3 days ago he had a periumbilical pain that has moved to the right lower quadrant has intensified. In addition, patient reports loose stool, reports fever x1 day. Reports nausea denies vomiting. Denies any melena/hematochezia. Patient has no urinary complaints, testicular complaints at this time. Denies any new penile discharge. No prior history of hernia. Onset: 3 days ago Duration:3 days Location:home Severity:moderate Associated symptoms: Reports nausea; Deny chest pain, dyspnea, rash, palpitations or vomiting Review of Systems Const: Denies: fever(s) or chills Eyes: Denies: change in vision ENMT: Denies: mouth pain Card: Denies: chest pain or palpitations Resp: Denies: dyspnea or non-productive cough GI: Reports: abdominal pain, nausea and diarrhea; Denies: vomiting : Denies: dysuria Musc: Denies: extremity pain Skin/Breast: Denies: rash or new lesions Neuro: Denies: weakness in extremities Psych: Reports: other (Normal mood) Richie/Lymph: Denies: easy bruising PFSH ED PFSH: Medical History (Updated 10/20/21 @ 18:35 by Yeison Gregg MD) Ulcerative colitis Social History Smoking and tobacco status: current every day smoker Alcohol intake: never Physical Exam Const: COMMON NORMALS: alert HENMT: COMMON NORMALS: atraumatic HEAD & SCALP: atraumatic MOUTH: moist mucous membranes not abnormal Eye: COMMON NORMALS: EOMs intact bilaterally and conjunctivae normal CONJUNCTIVA: Yes conjunctivae normal Neck/C-Spine: COMMON NORMALS: full ROM and supple Resp: COMMON NORMALS: normal respiratory effort and clear to auscultation bilaterally AUSCULTATION: clear to auscultation bilaterally Cardio: COMMON NORMALS: regular rate RATE: regular rate GI: COMMON NORMALS: Soft to palpation PALPATION: Yes Soft to palpation OTHER: +moderate RLQ TTP. NO guarding rebound, guarding, rigidity. No CVA tenderness to percussion. Neg Valdovinos/Neg McBurney's point tenderness, no suprabupic tenderness to palpation. Extremity: COMMON NORMALS: full ROM Neuro: SENSORIUM/ORIENTATION: Yes alert MOTOR EXAM: No Abnormal motor strength present and Other motor observations present (no focal motor deficits) Psych: COMMON NORMALS: speech normal SPEECH: Yes normal speech MOOD & AFFECT: Yes euthymic mood Course Vital Signs: Vital signs: Vital Signs Temperature 97.3 F L 10/20/21 15:25 Pulse Rate 54 L 10/20/21 18:22 Respiratory Rate 17 10/20/21 18:22 Blood Pressure 132/93 10/20/21 18:22 Pulse Oximetry 98 10/20/21 18:22 MDM - General Adult Medical Decision Making 46-year-old male w/ hx of UC presents emergency room with right lower quadrant abdominal pain x3 days diarrhea and nausea.. On exam, patient moderate tenderness to palpation. No guarding or rebound tenderness. Patient is afebrile. Lab work-up showed a white count of 9.8. Patient appears to be hemoconcentrated 18.8. He received IVF, GI cocktail and Zofran and is now able to tolerate p.o. he appears to be well controlled with morphine. CT abdomen showed enteritis without any focal findings. At the present time, I do not suspect any acute intra-abdominal pathologies. Unclear if patient is having an UC flare. Patient tells me that he currently does not follow-up with any doctor because does not have any insurance. I have given patient close follow-up with [facility] for reassessment at this time. He tells me that he will follow-up [facility] for reassessment of possible ulcerative colitis flare and continued monitoring. Rx tylenol PRN abd pain, maalox/pepcid PRN dyspepsia, and zofran PRN nausea/vomiting Disposition: Discharge. Patient counseled regarding diagnostic impression, treatment plan. Patient given ED strict return precautions to return for continuation, worsening, or development of new symptoms. Instructed to f/u w/ PCP regarding symptoms today. Patient verbalized understanding. Considered appendicitis however unlikely at this time given lack of signs and sx's to suggest appendicitis as etiology. Pt counseled that appendicitis may later develop and given appendicitis precautions and instructed to return if any development of RLQ tenderness, worsening or continued abdominal pain, or any fevers, chills, nausea, vomiting, or any other concerning signs or symptoms. Lab Data : 10/20/21 16:35 10/20/21 16:35 Radiology Impressions Abdomen/Pelvis CT 10/20/21 16:09 IMPRESSION: 1. Mildly prominent fluid in the small bowel without dilation suggestive of an enteritis. 2. Spleen enlarged at 13.9 cm. 3. Diverticulosis without diverticulitis. Laboratory Results WBC 9.8 10^3/uL (4.0-10.0) 10/20/21 16:35 RBC 6.40 10^6/uL (4.1-5.3) H 10/20/21 16:35 Hgb 18.8 g/dL (11.7-16.6) H 10/20/21 16:35 Hct 53.9 % (42.0-52.0) H 10/20/21 16:35 MCV 84.2 fl (80-94) 10/20/21 16:35 MCH 29.4 pg (28.0-34.0) 10/20/21 16:35 MCHC 34.9 g/dL (30.0-36.0) 10/20/21 16:35 RDW 12.4 % (12.1-15.1) 10/20/21 16:35 Plt Count 258 10^3/cmm (130-400) 10/20/21 16:35 MPV 11.2 fL (7.4-10.4) H 10/20/21 16:35 Neut % (Auto) 74.9 % 10/20/21 16:35 Lymph % (Auto) 18.3 % 10/20/21 16:35 [place] % (Auto) 5.3 % 10/20/21 16:35 Eos % (Auto) 1.0 % 10/20/21 16:35 Baso % (Auto) 0.2 % 10/20/21 16:35 Neut # (Auto) 7.37 10^3/uL (1.8-7.7) 10/20/21 16:35 Lymph # (Auto) 1.8 10^3/uL (0.8-4.8) 10/20/21 16:35 [place] # (Auto) 0.5 10^3/uL (0.2-0.9) 10/20/21 16:35 Eos # (Auto) 0.1 10^3/uL (0.0-0.8) 10/20/21 16:35 Baso # (Auto) 0.0 10^3/uL (0.0-0.1) 10/20/21 16:35 Nucleated RBC % (auto) 0 % 10/20/21 16:35 Nucleated RBCs # 0.0 /100WBC 10/20/21 16:35 Sodium 137 mmol/L (136-145) 10/20/21 16:35 Potassium 4.1 mmol/L (3.5-5.1) 10/20/21 16:35 Chloride 102 mmol/L (98-107) 10/20/21 16:35 Carbon Dioxide 22 mmol/L (22-29) 10/20/21 16:35 Anion Gap 17.1 (5-19) 10/20/21 16:35 BUN 8 mg/dL (6-20) 10/20/21 16:35 Creatinine 0.8 mg/dL (0.7-1.2) 10/20/21 16:35 GFR Calculation 104.5 mL/min (90-130) 10/20/21 16:35 Glucose 94 mg/dL (65-115) 10/20/21 16:35 Calculated Osmolality 282 mOsm/kg (285-295) L 10/20/21 16:35 Lactate 1.2 mmol/L (0.5-2.2) 10/20/21 16:35 Calcium 9.0 mg/dL (8.5-10.5) 10/20/21 16:35 Total Bilirubin 0.5 mg/dL (0.15-1.2) 10/20/21 16:35 AST 13 U/L (0-40) 10/20/21 16:35 ALT 8 U/L (0-41) 10/20/21 16:35 Alkaline Phosphatase 93 IU/L (40-130) 10/20/21 16:35 Total Protein 7.1 g/dL (6.6-8.7) 10/20/21 16:35 Albumin 4.7 g/dL (3.5-5.2) 10/20/21 16:35 Globulin 2.4 g/dL (1.3-4.6) 10/20/21 16:35 Lipase 63 U/L (13-60) H 10/20/21 16:35 Imaging Data Other Imaging: Radiologist's impression: [facility] [place] [address] CT Scan Report Signed Patient: Bradley Barroso Unit #: [id number] : 1975 Age/Sex: 46 / M ADM Date: 10/20/21 Loc: ER Room/Bed: Attending Dr: Ordering Provider/Ordering MD: Yeison Gregg MD Date of Service: 10/20/21 Procedure(s): CT abdomen pelvis w con* [id number] Accession Number(s): [id number] Report Number: [id number] PROCEDURE INFORMATION: Exam: CT Abdomen And Pelvis With Contrast Exam date and time: 10/20/2021 5:15 PM Age: 46 years old Clinical indication: Abdominal pain; Flank; Right lower quadrant (rlq); Prior surgery; Surgery date: 6+ months; Surgery type: Vasectomy; Additional info: Rlq pain with low grade fever, HX of ulcerative colitis TECHNIQUE: Imaging protocol: Computed tomography of the abdomen and pelvis with contrast. Radiation optimization: All CT scans at this facility use at least one of these dose optimization techniques: automated exposure control; mA and/or kV adjustment per patient size (includes targeted exams where dose is matched to clinical indication); or iterative reconstruction. Contrast material: OMNIPAQUE 350; Contrast volume: 95 ml; Contrast route: INTRAVENOUS (IV);? COMPARISON: CT abdomen pelvis w con* [id number] 09/17/2020 9:35 AM RADIATION DOSE METRICS: Total DLP (mGy-cm): 1745.32 FINDINGS: Liver: Normal. No mass. Gallbladder and bile ducts: Normal. No calcified stones. No ductal dilation. Pancreas: Normal. No ductal dilation. Spleen: Spleen enlarged at 13.9 cm. Adrenal glands: Normal. No mass. Kidneys and ureters: Normal. No hydronephrosis. Stomach and bowel: Mildly prominent fluid in the small bowel without dilation suggestive of an enteritis. Diverticulosis without diverticulitis. Appendix: No evidence of appendicitis. Intraperitoneal space: Unremarkable. No free air. No significant fluid collection. Arteries: Unremarkable. No abdominal aortic aneurysm. Lymph nodes: Unremarkable. No enlarged lymph nodes. Urinary bladder: Unremarkable as visualized. Reproductive: Unremarkable as visualized. Bones/joints: Unremarkable. No acute fracture. Soft tissues: Unremarkable. CT/CT abdomen pelvis w con* [id number] IMPRESSION: 1. Mildly prominent fluid in the small bowel without dilation suggestive of an enteritis. 2. Spleen enlarged at 13.9 cm. 3. Diverticulosis without diverticulitis. ? Dictated By: All Gibbs MD Signed By: All Gibbs MD Signed Date/Time: 10/20/211741 DD/ 171 Discharge Plan Discharge Patient Disposition: Home Clinical Impression: Abdominal pain, Nausea, Diarrhea, Enteritis Condition: Stable Prescriptions: New acetaminophen 500 mg tablet 500 mg PO Q6H PRN (Reason: pain) 5 Days Qty: 20 0RF Pepcid 20 mg tablet 20 mg PO BID PRN (Reason: abdominal pain) 10 Days Qty: 20 0RF ondansetron 4 mg tablet,disintegrating 4 mg PO TID PRN (Reason: nausea and vomiting) 4 Days Qty: 12 0RF Maalox Advanced 1,000-60 mg tablet,chewable 1 tab PO TID PRN (Reason: abdominal pain) 7 Days Qty: 21 0RF No Action buspirone 10 mg tablet 10 mg PO BID Qty: 14 0RF Rx Instructions: Take one tablet every morning and evening citalopram 40 mg tablet 40 mg PO DAILY Qty: 14 0RF Rx Instructions: Take one tablet daily ciprofloxacin HCl [Cipro] 500 mg tablet 500 mg PO BID 7 Days Qty: 14 0RF metronidazole 500 mg tablet 500 mg PO BID 7 Days Qty: 14 0RF aspirin 325 mg Tablet 650 mg PO Q6H PRN (Reason: Pain) 0RF fluticasone propionate 50 mcg/actuation [place],Suspension 2 spray INTRANASAL BEDTIME 0RF albuterol sulfate 90 mcg/actuation Hfa Aerosol Inhaler 2 puff INHALATION BEDTIME 0RF Discharge Orders: Discharge ED (Routine); Ordered 10/20/21 Ordered By: Yeison Gregg Discharge Diet: Advance as tolerated Discharge Activity: Increase activity as tolerated Patient Instructions: Abdominal Pain (ED) Activity Restrictions/Additional Instructions: Please come back if you have any worsening abdominal pain, fever or chills, nausea or vomiting, diarrhea, blood in the stool, inability hold down liquid or solids, or any new concerning complaints. Please return if you develop continued nausea, vomiting, or develop fevers, chills, abdominal pain, abdominal pain that is in the lower right side of your abdomen, or any other concerning signs or symptoms. Stand Alone Forms: Work/School Release Coding Level of Care Code ED [employer] Fwd Exam Comprehensive
[2021-10-20 16:43] VITALS: RESP 14
[2021-10-20] MEDS: morphine 4 mg/mL SDV 1 mL IVP (16:43)
[2021-10-20 16:59] LABS: Basophils % 0.2 %; Eosinophils # 0.1 10^3/uL (0.0-0.8); Hematocrit 53.9 % (42.0-52.0); Hemoglobin 18.8 g/dL (11.7-16.6); Lymphocytes # 1.8 10^3/uL (0.8-4.8); Lymphocytes % 18.3 %; Mean Corpuscular HGB Conc 34.9 g/dL (30.0-36.0); Mean Corpuscular Hemoglobin 29.4 pg (28.0-34.0); Mean Corpuscular Volume 84.2 fl (80-94); Mean Platelet Volume 11.2 fL (7.4-10.4); Monocytes # 0.5 10^3/uL (0.2-0.9); Monocytes % 5.3 %; Neutrophils # 7.37 10^3/uL (1.8-7.7); Neutrophils % 74.9 %; Nucleated Red Blood Cells % 0 %; Platelet Count 258 10^3/cmm (130-400); Red Cell Distribution Width 12.4 % (12.1-15.1); White Blood Count 9.8 10^3/uL (4.0-10.0)
[2021-10-20 17:17] LABS: Alanine Aminotransferase 8 U/L (0-41); Albumin Level 4.7 g/dL (3.5-5.2); Alkaline Phosphatase 93 IU/L (40-130); Anion Gap 17.1 (5-19); Aspartate Amino Transferase 13 U/L (0-40); Blood Urea Nitrogen 8 mg/dL (6-20); Carbon Dioxide 22 mmol/L (22-29); Chloride 102 mmol/L (98-107); Globulin 2.4 g/dL (1.3-4.6); Glomerular Filtration Rate 104.5 mL/min (90-130); Glucose 94 mg/dL (65-115); Lipase 63 U/L (13-60); Osmolality Calculated 282 mOsm/kg (285-295); Potassium 4.1 mmol/L (3.5-5.1); Sodium 137 mmol/L (136-145); Total Bilirubin 0.5 mg/dL (0.15-1.2); Total Protein 7.1 g/dL (6.6-8.7)
[2021-10-20 17:18] LABS: Lactate (Lactic Acid level) 1.2 mmol/L (0.5-2.2)
[2021-10-20] MEDS: ondansetron 2 mg/ML SDV 2 mL 4 MG IVP (18:14)
[2021-10-20] MEDS: lidocaine 2% viscous 15 ML, aluminum-mag hydrox-simethicon 30 ML, sucralfate oral liq 1 GM PO (18:14)
[2021-10-20 18:22] VITALS: BP 132/93; PULSE 54; RESP 17; O2SAT 98
[2021-10-20 19:03] VITALS: BP 120/78; PULSE 56; RESP 17; O2SAT 97
== END 2021-10-20 19:06 | disposition home or self-care (01) ==
PROVIDERS: Emergency Provider Emergency Medicine
DX: K52.9 Noninfective gastroenteritis and colitis, unspecified (principal); F17.210 Nicotine dependence, cigarettes, uncomplicated
CPT/HCPCS: 74177; 80053; 83605; 83690; 85025; 93005; 96374; 96375; 99284; J2270; J2405; J7030; Q9967

== ENCOUNTER → 2022-02-18 10:40 | Outpatient (BNVA) | payer SELFPAY | PROVIDERS: Visit Provider Emergency Medicine | DX: J02.9 Acute pharyngitis, unspecified (principal) | CPT/HCPCS: 87071; 87880 ==

== ENCOUNTER → 2022-03-02 11:32 | Outpatient (BNVA) | payer SELFPAY | PROVIDERS: Visit Provider Emergency Medicine | DX: Z20.822 Contact with and (suspected) exposure to COVID-19 (principal); J11.1 Influenza due to unidentified influenza virus with other respiratory manifestations | CPT/HCPCS: 87426 ==

== ENCOUNTER → 2022-08-18 10:50 | Outpatient (BNVA) | payer OTHER, SELFPAY | PROVIDERS: Visit Provider Family Medicine | DX: K92.1 Melena (principal) | CPT/HCPCS: 80053; 80061; 85025; 85651; 86140 ==

== ENCOUNTER → 2022-09-21 16:26 | Outpatient (BNVA) | payer OTHER, SELFPAY | PROVIDERS: Visit Provider Family Medicine | DX: K92.1 Melena (principal) | CPT/HCPCS: 85025 ==

== ENCOUNTER 2022-10-19 07:53 | Day surgery (SDC) | payer OTHER, SELFPAY ==
[2022-10-17 12:51] VITALS: BMI 33.0
[2022-10-19 08:11] VITALS: BP 149/77; PULSE 76; RESP 16; TEMP 36.1; O2SAT 96
[2022-10-19] MEDS: sodium chloride 0.9% 1,000 ML 30 ML IV ×2 (08:21→09:51)
--- NOTE | 2022-10-19 08:50 | P.ANESASSM_ITS ---
Pre-Anesthetic Assessment Height/Weight: Height 1.78 m Weight 104.326 kg Temp Pulse Resp BP Pulse Ox O2 Del Method 97.0 F L 76 16 149/77 96 Room Air 10/19/22 08:11 10/19/22 08:11 10/19/22 08:11 10/19/22 08:11 10/19/22 08:11 10/19/22 08:11 Operation Date: 10/19/22 09:30 Proposed Procedures p 21101 EGD 22703 Colonoscopy K92.2, R11,k92.1(Not Applicable) - DO kimber Lee Colonoscopy(Not Applicable) - Sraan Gustafson DO Familial anesthetic complications: none Was Beta Viet taken within 24 hours: N/A Was Clonidine taken within 24 hours: N/A Last intake: Intake Last Liquid Date 10/18/22 Last Liquid Time 23:00 Last Solid Date 10/17/22 Last Solid Time 23:00 Social Tobacco (.5 ppd) and No alcohol Exam alert and oriented x 3 Airway Submandibular: within normal limits Cervical ROM: within normal limits Mallampati: Class II Dentition: full History/ROS No significant history except as noted Pulmonary None reported CV/HEM None reported None reported Hepatic None reported GI None reported Metabolic None reported Musc/skel None reported Neuropsych None reported Anesthetic Plan ASA status: 2 Anesthesia: Anesthesia Evaluation and MAC Risk of > 500 ml blood loss (7ml/kg in children): No Medications/Allergies Home Medications Medication Instructions Recorded Confirmed Last Taken Type pantoprazole 40 mg tablet,delayed 40 mg PO BID 6 weeks #84 tabs 10/14/22 10/17/22 10/17/22 Rx release (Protonix) Allergies Allergy/AdvReac Type Severity Reaction Status Date / Time amoxicillin Allergy Intermediate Hives and Verified 10/14/22 10:54 redness Penicillins Allergy ALGY-Anaphy Verified 10/14/22 10:54 laxis Current Medications Generic Name Dose Route Start Last Admin Trade Name Freq PRN Reason Stop Dose Admin Sodium Chloride 1,000 mls @ 30 mls/hr 10/19/22 08:00 10/19/22 08:21 Sodium Chloride 0.9% IV 10/20/22 07:59 30 mls/hr .Q24H ISREAL Administration PFSH Anesthesia Medical History Ulcerative colitis Surgical History History of vasectomy Family History Mother Cancer lung Other Hyperlipidemia Hypertension Lung disease Denies family history of Diabetes Chronic kidney disease (CKD) Bleeding disorder Social History (Updated 10/14/22 @ 10:59 by Annie Jhaveri LPN) Smoking and tobacco status: current every day smoker cigarettes [ Other cigarette details: 1/2 PPD, 3PY] Alcohol intake: never Substance/Drug Use: current Substance/Drug use frequency: few times a week Other substance/drug use details: Meth years ago Lives independently: Yes Marital status: Number of children: 2 Current occupational status: employed Current occupation: [employer] Anesthesia Cardiac Studies: 2 No Data to Display
--- NOTE | 2022-10-19 09:33 | W.PM.OPSUD ---
Surgery/Procedure H&P Update DATE OF PROCEDURE: October 19, 2022 DATE H&P PERFORMED: 09/27/22 H&P UPDATE INFORMATION: I have reviewed H&P completed within last 30 days, I have examined patient prior to procedure and No changes to prior documentation PLANNED PROCEDURE: Operation Date: 10/19/22 09:30 Proposed Procedures p [id number] EGD [id number] Colonoscopy K92.2, R11,k92.1(Not Applicable) - Saran Gustafson DO s Colonoscopy(Not Applicable) - Saran Gustafson DO
[2022-10-19 10:04] VITALS: BP 152/98; PULSE 77; RESP 16; TEMP 36.1; O2SAT 100
--- NOTE | 2022-10-19 10:14 | ANE.PACU2 ---
Inpatient post-anesthesia follow up: Airway intact: Yes Vital signs: Temperature 97 F Pulse Rate 77 Respiratory Rate 16 Blood Pressure 152/98 Pulse Oximetry 100 Oxygen Delivery Me thod Room Air Oxygen Flow Rate Fraction of Inspir ed Oxygen Hydration adequate: Yes Nausea and vomiting: No Pain level: 1 Mental status: Baseline
[2022-10-19 10:15] VITALS: BP 155/107; PULSE 80; RESP 16; O2SAT 100
[2022-10-19 10:26] VITALS: PULSE 66; RESP 18; O2SAT 99
== END 2022-10-19 10:51 | disposition home or self-care (01) ==
PROVIDERS: PCP Family Medicine; Visit Provider Surgery
PROC: 0DJD8ZZ Inspection of Lower Intestinal Tract, Via Natural or Artificial Opening Endoscopic (ICD-10-PCS; CPT 45378; 2022-10-19 09:30)
PROC: 0DJ08ZZ Inspection of Upper Intestinal Tract, Via Natural or Artificial Opening Endoscopic (ICD-10-PCS; CPT 43235; 2022-10-19 09:30)
DX: K92.1 Melena (principal); F17.210 Nicotine dependence, cigarettes, uncomplicated; K57.30 Diverticulosis of large intestine without perforation or abscess without bleeding; K64.8 Other hemorrhoids; D12.2 Benign neoplasm of ascending colon
CPT/HCPCS: 43239; 45380; 45385; 88305; 88342; J2704; J7030

== ENCOUNTER 2023-02-02 07:45 | Outpatient (CLI) | payer OTHER, SELFPAY ==
--- NOTE | 2023-02-02 08:01 | US_ITS ---
WS: [id number] RIGHT UPPER QUADRANT ULTRASOUND HISTORY: abd pain COMPARISON: None available. Liver: 16.0 cm in length. Normal size liver and echogenicity. No bile duct dilatation or mass. Portal Vein: Normal hepatopetal flow with monophasic waveform. Gallbladder: Normally distended gallbladder with no stones or wall thickening. CBD: 0.5 cm Pancreas: Normal size and echogenicity. Right kidney: 10.6 cm in length. Normal size and echogenicity. No hydronephrosis or mass. Aorta and IVC: Unremarkable abdominal aorta and IVC. No ascites. IMPRESSION: Normal RIGHT upper quadrant ultrasound.
== END 2023-02-02 07:46 | disposition home or self-care (01) ==
PROVIDERS: PCP Family Medicine; Visit Provider Surgery
DX: K29.50 Unspecified chronic gastritis without bleeding (principal); R10.9 Unspecified abdominal pain
CPT/HCPCS: 76705

== ENCOUNTER 2023-03-07 09:48 | Outpatient (CLI) | payer OTHER, SELFPAY ==
--- NOTE | 2023-03-07 10:00 | NM_ITS ---
WS: [id number] NUCLEAR MEDICINE HIDA SCAN CLINICAL INFORMATION: abdominal pain TECHNIQUE: Following intravenous administration of 7.4 mCi of technetium 99m mebrofenin, images of th e abdomen were obtained over the course of 60 minutes. Next, gallbladder ejection fraction was determ ined by obtaining preprandial and one-hour postprandial images of the gallbladder following oral olya stion of Ensure. COMPARISON: Ultrasound 02/02/2023 FINDINGS: Normal hepatic uptake at 5 minutes. Normal hepatic excretion. Gallbladder is visualized by 15 minutes . No evidence of acute cholecystitis. Normal common bile duct and small bowel activity. Gallbladder ejection fraction 71% within normal limits. No evidence of chronic cholecystitis. IMPRESSION: 1. No evidence of acute or chronic cholecystitis. 2. Gallbladder ejection fraction 71% within normal limits.
== END 2023-03-07 09:49 | disposition home or self-care (01) ==
LOC: RAD 09:48
PROVIDERS: PCP Family Medicine; Visit Provider Surgery
DX: R10.9 Unspecified abdominal pain (principal)
CPT/HCPCS: 78227; A9537

== ENCOUNTER 2023-04-06 07:54 | Day surgery (SDC) | payer OTHER, SELFPAY ==
[2023-04-05 09:58] VITALS: BMI 32.3
[2023-04-06] VITALS (10 sets, daily range): BP systolic 129–179; BP diastolic 69–100; PULSE 57–79; RESP 14–16; TEMP 36.2–36.6; O2SAT 94–100
[2023-04-06] MEDS: vancomycin 1,500 MG/300 ML PIGGYBACK 200 MG IV (08:37)
[2023-04-06] MEDS: scopolamine 1.5 Patch 1 PATCH TRANSDERMA (08:37)
[2023-04-06] MEDS: sodium chloride 0.9% 1,000 ML 30 ML IV (08:37)
--- NOTE | 2023-04-06 09:01 | ANES.PREANE2 ---
Pre-Anesthetic Assessment Height/Weight: Height 1.78 m Weight 102.058 kg Temp Pulse Resp BP Pulse Ox O2 Del Method 97.5 F L 72 16 129/83 98 Room Air 04/06/23 08:10 04/06/23 08:10 04/06/23 08:10 04/06/23 08:10 04/06/23 08:10 04/06/23 08:11 Operation Date: 04/06/23 09:30 Proposed Procedures p 56483 lap mela R10.11(Not Applicable) - Saran Gustafson DO Familial anesthetic complications: None Was Beta Viet taken within 24 hours: N/A Was Clonidine taken within 24 hours: N/A Last intake: Intake Last Liquid Date 04/05/23 Last Liquid Time 23:55 Last Solid Date 04/05/23 Last Solid Time 14:00 Social Tobacco and No alcohol .5 pack(s) per day smokes marijuana Exam alert and oriented x 3 Airway Submandibular: within normal limits Cervical ROM: within normal limits Mallampati: Class I Dentition: full History/ROS No significant history except as noted Pulmonary Cough (r/t smoking) CV/HEM None reported None reported Hepatic None reported GI None reported Metabolic None reported Musc/skel None reported Neuropsych None reported Anesthetic Plan ASA status: 2 Medications/Allergies Home Medications Medication Instructions Recorded Confirmed Last Taken Type No Known Home Medications 02/14/23 03/16/23 Unknown History Allergies Allergy/AdvReac Type Severity Reaction Status Date / Time amoxicillin Allergy Intermediate Hives and Verified 04/05/23 09:58 redness Penicillins Allergy ALGY-Anaphy Verified 04/05/23 09:58 laxis Current Medications Generic Name Dose Route Start Last Admin Trade Name Ignacioq PRN Reason Stop Dose Admin Vancomycin/PEG/NADA/Lysine/Water 1,500 mg in 300 mls @ 200 mls/hr 04/06/23 08:01 04/06/23 08:37 Vancocin IV 04/06/23 09:30 200 mls/hr [facility] HISTORY PROFESSOR ONE Administration Protocol Sodium Chloride 1,000 mls @ 30 mls/hr 04/06/23 08:15 04/06/23 08:37 Sodium Chloride 0.9% IV 04/07/23 08:14 30 mls/hr .Q24H ISREAL Administration PFSH Anesthesia Medical History Ulcerative colitis Surgical History History of vasectomy Family History Mother Cancer lung Other Hyperlipidemia Hypertension Lung disease Denies family history of Diabetes Chronic kidney disease (CKD) Bleeding disorder Social History Smoking and tobacco/nicotine status: current every day tobacco/nicotine user cigarettes [ Other cigarette details: 1/2 PPD, 3PY] Alcohol intake: never Substance/Drug Use: current Substance/Drug use frequency: few times a week Other substance/drug use details: Meth years ago Lives independently: Yes Marital status: Number of children: 2 Current occupational status: employed Current occupation: [employer] Data Anesthesia Cardiac Studies: No Data to Display
[2023-04-06] MEDS: ipratropium-albuterol 3 mL Neb INHALATION (09:02)
--- NOTE | 2023-04-06 09:46 | W.PM.OPSUD ---
Surgery/Procedure H&P Update DATE OF PROCEDURE: April 06, 2023 DATE H&P PERFORMED: 03/16/23 H&P UPDATE INFORMATION: I have reviewed H&P completed within last 30 days, I have examined patient prior to procedure and No changes to prior documentation PLANNED PROCEDURE: Operation Date: 04/06/23 09:30 Proposed Procedures p 81374 lap mela R10.11(Not Applicable) - Saran Gustafson, DO
[2023-04-06] MEDS: lidocaine-epi 2% 20 mL INJ 10 ML INJECTION (11:56)
--- NOTE | 2023-04-06 12:09 | P.OP_ITS ---
Operative Report Date of procedure: April 06, 2023 Pre-op diagnosis: Right upper quadrant syndrome Post-op diagnosis: same Procedure done: Laparoscopic cholecystectomy Implants: Surgicel Specimens removed/disposition: Gallbladder Surgeon: Saran Gustafson DO Anesthesia: General Estimated blood loss (mL): 5 Complications: None apparent Brief History: This very pleasant 47-year-old gentleman who had a full work-up for epigastric pain. He was diagnosed with right upper quadrant abdominal pain. Laparoscopic cholecystectomy was indicated. The risk and benefits were explained and documented. I explicitly explained to him that there was a 20 to 30% chance of taking out his gallbladder would not relieve his symptoms and he wanted to proceed Procedure: Patient was wheeled into the operative room and placed on the OR table in a supine position. Abdomen was inspected prepped and draped in usual sterile fashion. Time-out was performed and all present were in agreement. A 15 blade scalp was used to make a stab incision in the left upper quadrant and intra- abdominal insufflation was achieved using a Veress needle. After localizing the tissue incisions were made and a 5 millimeter trocar was placed into the umbilicus as well as 2 in the right upper quadrant. A 12 millimeter trocar was placed in the epigastrium. Gallbladder was grasped and elevated. The triangle of Calot was carefully dissected using blunt dissection and electrocautery until the triangle of Calot clearly identified. The cystic duct was clipped proximally and double clipped distally. The duct was then ligated proximally. The cystic artery was doubly clipped and ligated. The gallbladder was then removed from the liver bed using electrocautery. The gallbladder was removed from the abdomen using an Endo-Catch bag through the epigastric incision. The liver bed was inspected and a small amount of bleeding was seen which was controlled with Surgicel. The abdomen was irrigated and suctioned. All ports removed. Skin was washed and dried. Incisions were closed with 4-0 Monocryl in a subcuticular interrupted fashion. Skin glue was applied. Patient tolerated the procedure well.
[2023-04-06] MEDS: fentaNYL 50 mcg/mL INJ 2mL IVP (12:40)
[2023-04-06] MEDS: TRAMadol 50 mg Tablet PO (13:36)
--- NOTE | 2023-04-06 14:06 | ANE.PACU2 ---
Inpatient post-anesthesia follow up: Airway intact: Yes Vital signs: Temperature 97.8 F Pulse Rate 64 Respiratory Rate 16 Blood Pressure 158/88 Pulse Oximetry 96 Oxygen Delivery Me thod Room Air Oxygen Flow Rate 6 Fraction of Inspir ed Oxygen Hydration adequate: Yes Nausea and vomiting: No Pain level: 4 Mental status: Baseline
--- NOTE | 2023-04-06 14:07 | SUR.PHASEII ---
INCISION SITE DRY AND INTACT. NO DRAINAGE.
== END 2023-04-06 14:05 | disposition home or self-care (01) ==
PROVIDERS: PCP Family Medicine; Visit Provider Surgery
PROC: 0FT44ZZ Resection of Gallbladder, Percutaneous Endoscopic Approach (ICD-10-PCS; CPT 47562; principal; 2023-04-06 09:30)
DX: K81.1 Chronic cholecystitis (principal); F17.210 Nicotine dependence, cigarettes, uncomplicated
CPT/HCPCS: 47562; 88304; J1100; J1170; J2250; J2405; J2704; J2710; J3010; J3370; J3490; J7030

== ENCOUNTER 2023-12-25 13:05 | Emergency (ER) | payer SELFPAY ==
[2023-12-25 13:59] VITALS: BP 142/72; PULSE 82; RESP 18; TEMP 37; O2SAT 97
--- NOTE | 2023-12-25 14:43 | ED_ITS ---
HPI - Back Pain/Injury General: Chief Complaint: Back Pain/Injury Stated Complaint: back pain Time Seen by Provider: 12/25/23 14:41 Source: patient Mode of arrival: ambulatory Limitations: no limitations History of Present Illness: Patient is a 48-year-old male who presents to ED today with complaint of left- sided back pain that began 2 weeks ago after he was on a lawnmower and bent over at the side of it to filler picker something heavy weighing approximately 50 pounds. Patient states he immediately felt something on the left side of his back. He has been treating with OTC analgesics and topical therapies without much relief. He states this did occur at work however this is not Worker's Comp. stating his employer would not file an accident report. He states pain is radiating down into his left buttock and down his left leg. He is ambulatory here without assistance. MD elicited complaint: back pain Pertinent past history: recent trauma Onset (ago): week(s) (2 weeks ago) Timing: constant Severity: moderate Similar Symptoms Previously: No Location: left lower back Radiation: buttocks and left upper leg Exacerbating factors: movement, walking and lifting Relieving factors: none Context: while lifting Associated symptoms: Reports no associated symptoms and difficulty walking (secondary to back pain); Deny abdominal pain, dysuria, fever(s) or hematuria Treatments prior to arrival: cold therapy, heat therapy and acetaminophen Work related injury: Yes Review of Systems Const: Denies: fever(s) Card: Denies: chest pain Resp: Denies: dyspnea GI: Denies: abdominal pain : Denies: flank pain, dysuria or hematuria Musc: Reports: back pain; Denies: neck pain, extremity pain, extremity swelling, joint pain or joint swelling Skin/Breast: Denies: rash Neuro: Reports: difficulty walking (secondary to back pain); Denies: headache(s), numbness in extremities, weakness in extremities or sensory changes PFSH ED PFSH: Medical History Ulcerative colitis Surgical History Hx laparoscopic cholecystectomy 04/06/23 Dr. Gustafson History of vasectomy Family History Mother Cancer lung Other Hyperlipidemia Hypertension Lung disease Denies family history of Diabetes Chronic kidney disease (CKD) Bleeding disorder Social History Smoking and tobacco/nicotine status: current every day tobacco/nicotine user cigarettes [ Other cigarette details: 1/2 PPD, 3PY] Alcohol intake: never Substance/Drug Use: current Substance/Drug use frequency: few times a week Other substance/drug use details: Meth years ago Lives independently: Yes Marital status: Number of children: 2 Current occupational status: employed Current occupation: [employer] Physical Exam Const: COMMON NORMALS: no acute distress, average body habitus, patient oriented x3, no limitations, alert and well nourished GENERAL APPEARANCE: co operative ORIENTATION/CONSCIOUSNESS: Yes awake, Yes oriented to person, Yes oriented to place and Yes oriented to time HENMT: COMMON NORMALS: normocephalic and atraumatic HEAD & SCALP: normal to inspection, normocephalic and atraumatic Chest: COMMONS NORMALS: normal inspection of the chest and normal palpation of entire chest wall Resp: COMMON NORMALS: normal respiratory effort and clear to auscultation bilaterally AUSCULTATION: clear to auscultation bilaterally Cardio: COMMON NORMALS: regular rate and regular rhythm RATE: regular rate RHYTHM: regular rhythm GI: COMMON NORMALS: Normal to inspection, nondistended, normoactive bowel sounds present, Soft to palpation and non-tender PALPATION: Yes Soft to palpation : COMMON NORMALS: Yes no CVA tenderness BLADDER/KIDNEY EXAM: Yes no CVA tenderness Back/Pelvis: COMMON NORMALS: no CVA tenderness, thoracic and lumbar spine normal to inspection, no thoracic nor lumbar tenderness and straight leg raise negative bilaterally THORACIC SPINE/UPPER BACK: No thoracic spinal tenderness and No paraspinal muscle tenderness LUMBAR SPINE/LOWER BACK: No lumbar spinal tenderness and Yes paraspinal muscle tenderness Lumbar paraspinal muscle tenderness: left PELVIS: Yes sciatic notch tenderness SACROILIAC JOINTS: Yes SI joint(s) abnormal SI joint details: tender to palpation (left) SACRUM: no tenderness COCCYX: no tenderness Extremity: COMMON NORMALS: normal to inspection, full ROM, capillary refill normal, no joint enlargement, no clubbing, cyanosis or edema, no calf tenderness and no pedal edema GENERAL: Yes normal exam except as noted Neuro: COMMON NORMALS: patient oriented x3, moves all extremities, no focal motor deficits and no sensory deficits noted SENSORIUM/ORIENTATION: Yes alert, Yes oriented to person, Yes oriented to place and Yes oriented to time MOTOR EXAM: 5/5 motor strength present throughout DEEP TENDON REFLEXES: Right patellar reflex intensity grade: 2+ and Left patellar reflex intensity grade: 2+ Skin: COMMON NORMALS: no rashes or lesions noted GENERAL SKIN EXAM: no rashes or lesions noted Course Vital Signs: Vital signs: Vital Signs Temperature 98.6 F 12/25/23 13:59 Pulse Rate 82 12/25/23 13:59 Respiratory Rate 18 12/25/23 13:59 Blood Pressure 142/72 12/25/23 13:59 Pulse Oximetry 97 12/25/23 13:59 MDM - Back Pain/Injury Medical Decision Making XR unremarkable. Patient will be treated with NSAIDs, steroids, muscle relaxers. Recommend follow-up with primary care in 1 to 2 weeks for continued pain. Differential Diagnosis Likely lumbar radiculopathy, sciatica and strain of lumbar region Medical Records I reviewed the patient's medical records. XR interpretation done by ED provider, pending radiology final review Discharge Plan Discharge Patient Disposition: Home Clinical Impression: Low back strain Qualifiers: Encounter type: initial encounter Qualified Code(s): S39.012A - Strain of muscle, fascia and tendon of lower back, initial encounter Condition: Stable Prescriptions: New methocarbamol 500 mg tablet 1,000 mg PO Q8H Qty: 30 0RF ibuprofen 800 mg tablet 800 mg PO Q8H PRN (Reason: pain) Qty: 20 0RF Medrol (Mckin[place]) 4 mg tablets,dose pack See Rx Instructions .ROUTE .COMPLEX Qty: 21 0RF Rx Instructions: orally per package directions Discontinued prednisone 20 mg tablet 60 mg PO DAILY 5 Days Qty: 15 0RF levofloxacin 750 mg tablet 750 mg PO DAILY 7 Days Qty: 7 0RF No Action albuterol sulfate 90 mcg/actuation HFA aerosol inhaler 2 inh inhalation Q4H PRN (Reason: shortness of breath or wheezing) Qty: 6.7 0RF Discharge Orders: Discharge ED (Routine); Ordered 12/25/23 Ordered By: Simi Aguilar Referrals: Dung Maurer MD [Primary Care Provider] - Patient Instructions: Low Back Strain (ED) Stand Alone Forms: Work/School Release Coding Level of Care Code ED [employer] Economist for Chg Fwd
--- NOTE | 2023-12-25 14:49 | XR_ITS ---
WS: [id number] XR lumbar spine 2-3V* [id number] REASON FOR EXAM: back pain/injury FINDINGS: Normal lumbar spine curvatures. No vertebral body abnormality. Intervertebral disc spaces are intact and well preserved. Minimal osteophytosis of the L3-L5 vertebral bodies. No facet joint abnormality. No significant listhesis. XR/XR lumbar spine 2-3V* [id number] IMPRESSION: No acute abnormality. Minimal change of degenerative spondylosis.
[2023-12-25] MEDS: dexamethasone 10 mg/mL INJ IM (14:59)
[2023-12-25] MEDS: ketorolac 60 mg/2 mL INJ IM (14:59)
[2023-12-25 16:17] VITALS: BP 142/72; PULSE 82; RESP 18; TEMP 37; O2SAT 97
== END 2023-12-25 16:21 | disposition home or self-care (01) ==
PROVIDERS: Emergency Provider Physician Assistant; PCP Family Medicine
DX: S39.012A Strain of muscle, fascia and tendon of lower back, initial encounter (principal); F17.210 Nicotine dependence, cigarettes, uncomplicated; X50.0XXA Overexertion from strenuous movement or load, initial encounter
CPT/HCPCS: 72100; 96372; 99284; J1100; J1885

== ENCOUNTER 2024-04-05 14:09 | Outpatient (CLI) | payer OTHER, SELFPAY ==
--- NOTE | 2024-04-05 14:30 | MR_ITS ---
WS: [id number] MRI LUMBAR SPINE NONCONTRAST TECHNIQUE: Sagittal T1, T2 and STIR imaging. Axial T1 and T2 imaging. CLINICAL INFORMATION: unrelenting pain 3 months p injury....not working COMPARISON: None. FINDINGS: Mild lumbar curve. No acute compression. No high-grade central canal stenosis. L1-L2: Mild facet arthropathy. Spinal canal and foramen are patent. L2-L3: Mild facet arthropathy. Spinal canal and foramen are patent. L3-L4: Mild facet arthropathy. Small RIGHT foraminal protrusion with mild RIGHT foraminal narrowing. Slight contact of the exiting RIGHT L3 nerve root. L4-L5: Shallow RIGHT paracentral protrusion. Impingement traversing L5 nerve root in the RIGHT subart icular recess. Recommend correlation RIGHT L5 nerve root symptoms. Mild RIGHT foraminal narrowing. Mo derate facet arthropathy. L5-S1: Tiny shallow central protrusion with a small annular fissure. Moderate facet arthropathy. Spin al canal and foramen are patent. Visualized pelvic bony structures: Normal. Paravertebral soft tissues: Normal. Small LEFT renal cyst. MR/MR lumbar spine wo con* [id number] IMPRESSION: 1. Mild lumbar curve. No acute compression. No high-grade central canal stenos is. 2. Mild RIGHT L3-L4 and L4-5 foraminal narrowing. 3. Shallow RIGHT paracentral protrusion L4-5 impinges the traversing RIGHT L5 nerve root in the subarticular recess. 4. Tiny shallow central protrusion L5-S1 with a tiny annular fissure 5. Mild to moderate facet arthropathy L3-L5.
== END 2024-04-05 14:10 | disposition home or self-care (01) ==
LOC: RAD 14:11
PROVIDERS: PCP Family Medicine; Visit Provider Family Medicine
DX: M51.16 Intervertebral disc disorders with radiculopathy, lumbar region (principal); M50.20 Other cervical disc displacement, unspecified cervical region; M47.896 Other spondylosis, lumbar region
CPT/HCPCS: 72148

== ENCOUNTER → 2024-04-18 14:31 | Outpatient (BNVA) | payer OTHER, SELFPAY | PROVIDERS: PCP Family Medicine; Visit Provider Orthopaedic Surgery | DX: M51.16 Intervertebral disc disorders with radiculopathy, lumbar region (principal) | CPT/HCPCS: 72110 ==